=== PATIENT | male | born 1995 | race Caucasian/White ===

== ENCOUNTER 2021-10-12 02:45 | Emergency (ER) | payer SELFPAY ==
[2021-10-12 02:50] VITALS: BP_SYST 128
--- NOTE | 2021-10-12 02:50 | NUR ---
Patient to ER bed 5 to gown for evaluation. Side rails up. Family friend at bedside for support. Report given to self.
[2021-10-12] MEDS ORDERED: HYDR-500 PO (03:27)
[2021-10-12] MEDS ORDERED: LORazepam 1 MG TABLET PO ONE (03:30)
[2021-10-12] MEDS ORDERED: LORazepam 1 MG TABLET ONE (03:31)
--- NOTE | 2021-10-12 03:35 | NUR ---
patient medicated as ordered w/ 1mg of ativan po, will observe for any adverse reaction. EKG done as ordered. EKG shown to MD Neves.
--- NOTE | 2021-10-12 03:39 | NUR ---
Patient given written and verbal discharge instructions and verbalizes understanding. ER MD discussed with patient the results and treatment provided. Patient in stable condition. ID arm band removed. Patient educated on pain management and to follow up with PMD. Pain Scale 0. Opportunity for questions provided and answered. Medication side effect fact sheet provided.
== END 2021-10-12 03:39 | disposition home or self-care (01) ==
LOC: SED 02:45
DX: F41.9 Anxiety disorder, unspecified (principal); R00.2 Palpitations; Z79.899 Other long term (current) drug therapy
CPT/HCPCS: 93005; 99283

== ENCOUNTER 2021-10-24 10:33 | Emergency (ER) | payer MEDICAID ==
[~2021-10-24] VITALS: Ht 180.3 cm; Wt 59.0 kg
[~2021-10-24 10:33] MED LIST: HYDR-500 PO
[2021-10-24 10:41] VITALS: BP_SYST 129
[2021-10-24] MEDS ORDERED: LORazepam 1 MG TABLET PO ONE (11:15)
[2021-10-24] MEDS ORDERED: LORA-259 PO (12:33)
== END 2021-10-24 12:51 | disposition home or self-care (01) ==
LOC: SED 10:33
DX: R07.89 Other chest pain (principal); F41.9 Anxiety disorder, unspecified; Z79.899 Other long term (current) drug therapy
CPT/HCPCS: 93005; 99283